=== PATIENT | female | born 1950 | race Native Hawaiian/Other Pacific Islander ===

== ENCOUNTER 2017-08-06 12:33 | Emergency (ER) | payer OTHER ==
[~2017-08-06] VITALS: Ht 157.5 cm; Wt 65.0 kg
[2017-08-06 12:47] VITALS: BP 239/110; PULSE 109; RESP 16; TEMP 98.6; O2SAT 98
--- NOTE | 2017-08-06 14:07 | PD ---
HPI Chief Complaint: Skin Problem Time Seen by Provider: 13:57 Travel History International Travel<30 days: No Contact w/Intl Traveler<30days: No Traveled to known affect area: No History of Present Illness HPI 66-year-old female is complaining of swelling of her left breast. She says the swelling started about a year ago. It has not been painful. She says the last 2 days is been some pus draining from her nipple area. She's also had occasional bleeding. She says she is generally healthy. She is not on any medication. She says she has not seen a doctor since she had her children many years ago. There is been no fever or chills. No weight loss. She does say that she has a blood pressure monitor at home and her blood pressure is always elevated. She has never been treated for it. She also says she has whitecoat syndrome [facility] Past Medical History Medical History: Denies Significant Hx Diminished Hearing: No Influenza Vaccination: No ?: Not Past Surgical History Surgical History: No Previous Surgery Social History Alcohol Use: No Tobacco Use: Yes Allergies-Medications (Allergen,Severity, Reaction): Coded Allergies: No Known Allergies (Unverified , 08/06/17) Reported Meds & Prescriptions Reported Meds & Active Scripts Active No Active Prescriptions or Reported Medications Review of Systems General / Constitutional: No: Fever, Chills Eyes: No: Diploplia HENT: No: Headaches Cardiovascular: No: Chest Pain or Discomfort Respiratory: No: Cough Gastrointestinal: No: Nausea, Vomiting Genitourinary: No: Urgency, Frequency Musculoskeletal: No: Myalgias, Arthralgias Skin: No Rash Neurologic: No: Weakness, Dizziness Physical Exam Narrative GENERAL: Well-developed female SKIN: Focused skin assessment warm/dry. HEAD: Atraumatic. Normocephalic. EYES: Pupils equal and round. No scleral icterus. No injection or drainage. ENT: No nasal bleeding or discharge. Mucous membranes pink and moist. NECK: Trachea midline. No JVD. CARDIOVASCULAR: Regular rate and rhythm. No murmur appreciated. RESPIRATORY: No accessory muscle use. Clear to auscultation. Breath sounds equal bilaterally. Right breast is normal. Left breast is hard about the size of an orange. The nipple an area over are enlarged and indurated. There is induration of the skin around the area. There is no obvious drainage at this time GASTROINTESTINAL: Abdomen soft, non-tender, nondistended. Hepatic and splenic margins not palpable. MUSCULOSKELETAL: No obvious deformities. No clubbing. No cyanosis. No edema. NEUROLOGICAL: Awake and alert. No obvious cranial nerve deficits. Motor grossly within normal limits. Normal speech. PSYCHIATRIC: Appropriate mood and affect; insight and judgment normal. Data Data Last Documented VS Vital Signs Date Time Temp Pulse Resp B/P (MAP) Pulse Ox O2 Delivery O2 Flow Rate FiO2 08/06/17 12:47 98.6 109 16 239/110 (153) 98 Orders Orders Electrocardiogram (08/06/17 14:21) Complete Blood Count With Diff (08/06/17 14:21) Comprehensive Metabolic Panel (08/06/17 14:21) Chest, Pa & Lat (08/06/17 14:21) Lisinopril (Prinivil) (08/06/17 14:30) Labs Laboratory Tests Test 08/06/17 14:29 White Blood Count 8.0 TH/MM3 Red Blood Count 4.80 MIL/MM3 Hemoglobin 13.1 GM/DL Hematocrit 40.5 % Mean Corpuscular Volume 84.5 FL Mean Corpuscular Hemoglobin 27.4 PG Mean Corpuscular Hemoglobin Concent 32.4 % Red Cell Distribution Width 12.8 % Platelet Count 210 TH/MM3 Mean Platelet Volume 9.4 FL Neutrophils (%) (Auto) 69.3 % Lymphocytes (%) (Auto) 22.4 % Monocytes (%) (Auto) 6.8 % Eosinophils (%) (Auto) 1.2 % Basophils (%) (Auto) 0.3 % Neutrophils # (Auto) 5.6 TH/MM3 Lymphocytes # (Auto) 1.8 TH/MM3 Monocytes # (Auto) 0.5 TH/MM3 Eosinophils # (Auto) 0.1 TH/MM3 Basophils # (Auto) 0.0 TH/MM3 CBC Comment DIFF FINAL Differential Comment Blood Urea Nitrogen 9 MG/DL Creatinine 0.69 MG/DL Random Glucose 81 MG/DL Total Protein 8.4 GM/DL Albumin 4.3 GM/DL Calcium Level 8.9 MG/DL Alkaline Phosphatase 53 U/L Aspartate Amino Transf (AST/SGOT) 16 U/L Alanine Aminotransferase (ALT/SGPT) 22 U/L Total Bilirubin 0.3 MG/DL Sodium Level 139 MEQ/L Potassium Level 3.7 MEQ/L Chloride Level 105 MEQ/L Carbon Dioxide Level 26.9 MEQ/L Anion Gap 7 MEQ/L Estimat Glomerular Filtration Rate 85 ML/MIN MDM Medical Decision Making Medical Screen Exam Complete: Yes Emergency Medical Condition: Yes Medical Record Reviewed: Yes Differential Diagnosis Differential includes breast abscess, carcinoma Narrative Course Patient is not systemically ill from infection. I suspect this is carcinoma. I have spoken with Dr. Samir ovalle and he has agreed to see the patient tomorrow. She does have elevation of her blood pressure. She says that she measures it at home and it is always elevated but she has never wanted to take medication. I tried to impress on her the importance that she take medication. We did do some preliminary lab work is unremarkable. Her hypertension is asymptomatic. I'm going to start her on lisinopril 20 mg daily but I told her that we can't know if this is full be the appropriate dose and she needs follow- up. Dr. Ovalle's office is called with an appointment for tomorrow. She is also to follow-up with her medical care doctor regarding her blood pressure Diagnosis Primary Impression: Breast mass Additional Impression: Asymptomatic hypertension Additional Instructions: To Dr. Samir Ovalle's office at [facility] ED tomorrow at 10:15 Scripts Lisinopril (Lisinopril) 20 Mg Tab 20 MG PO DAILY, #30 TAB 0 Refills Prov: Harmeet Solano MD 08/06/17 Disposition: 01 DISCHARGE HOME Condition: Stable Harmeet Solano MD Aug 06, 2017 14:07
[2017-08-06] MEDS ORDERED: LISINOPRIL 20 MG TAB PO ONE (14:30)
[2017-08-06 14:48] LABS: CHLORIDE 105 MEQ/L (98-107); POTASSIUM 3.7 MEQ/L (3.5-5.1); SODIUM (NA) 139 MEQ/L (136-145)
[2017-08-06 14:52] LABS: ANION GAP 7 MEQ/L (5-15); BICARBONATE 26.9 MEQ/L (21.0-32.0); BLOOD UREA NITROGEN 9 MG/DL (7-18)
[2017-08-06 14:55] LABS: ALT (GPT) 22 U/L (10-53); AST (GOT) 16 U/L (15-37); GLOMERULAR FILTRATION RATE 85 ML/MIN (>89)
[2017-08-06 14:57] LABS: TOTAL BILIRUBIN ADULT 0.3 MG/DL (0.2-1.0)
[2017-08-06 14:58] LABS: ALKALINE PHOSPHATASE 53 U/L (45-117)
[2017-08-06 15:06] LABS: AUTOMATED NEUTROPHIL # 5.6 TH/MM3 (1.8-7.7); BASOPHIL % 0.3 % (0.0-2.0); EOSINOPHIL # 0.1 TH/MM3 (0-0.4); EOSINOPHIL % 1.2 % (0.0-4.0); HEMATOCRIT 40.5 % (35.0-46.0); HEMO FLAGS DIFF FINAL; LYMPH % 22.4 % (9.0-44.0); LYMPHOCYTE # 1.8 TH/MM3 (1.0-4.8); MEAN CELL VOLUME 84.5 FL (80.0-100.0); MEAN CORPUSCULAR HEMOGLOBIN 27.4 PG (27.0-34.0); MEAN CORPUSCULAR HGB CONC 32.4 % (32.0-36.0); MONO % 6.8 % (0.0-8.0); NEUT % 69.3 % (16.0-70.0); PLATELET COUNT 210 TH/MM3 (150-450); RED CELL DISTRIBUTION WIDTH 12.8 % (11.6-17.2)
--- NOTE | 2017-08-06 15:18 | RADRPT ---
EXAM DATE/TIME: 08/06/2017 14:25 [place] COMPARISON: No previous studies available for comparison. INDICATIONS : Left breast pain with oozing. MEDICAL HISTORY : None. SURGICAL HISTORY : None. ENCOUNTER: Initial ACUITY: 2 days PAIN SCORE: 2/10 LOCATION: Left breast FINDINGS: Frontal and lateral views of the chest demonstrate a normal-sized cardiac silhouette. No effusion, co nsolidation, or pneumothorax is identified. Bones and soft tissues demonstrate no acute finding. Left breast shadow is smaller than the right. CONCLUSION: No acute cardiopulmonary abnormality is identified. Damian Butler MD on August 06, 2017 at 15:16 Board Certified Radiologist. This report was verified electronically.
[2017-08-06] MEDS ORDERED: LISI-515 PO (15:32)
[2017-08-06 15:38] VITALS: BP 184/95; PULSE 75; RESP 17; O2SAT 97
[2017-08-06] MEDS ORDERED: IBUPROFEN 600 MG TAB PO ONE (15:45)
--- NOTE | 2017-08-06 16:38 | EKG ---
Date Performed: 08/06/2017 Time Performed: 14:30:32 PTAGE: 66 years EKG: SINUS TACHYCARDIA ABNORMAL RHYTHM ECG NO PREVIOUS TRACING DOCTOR: Larry Green Interpretating Date/Time 08/06/2017 16:36:44
== END 2017-08-06 16:07 | disposition home or self-care (01) ==
LOC: PHED 12:33
DX: N63.0 Unspecified lump in unspecified breast (principal); I10 Essential (primary) hypertension; Z72.0 Tobacco use
CPT/HCPCS: 71020; 80053; 85025; 93005; 99285